=== PATIENT | male | born 1935 | race Two or more races ===

== ENCOUNTER 2018-09-11 13:10 | Outpatient (CLI) | payer MEDICARE, OTHER ==
[~2018-09-11] VITALS: Ht 157.5 cm; Wt 76.2 kg
[2018-09-11 13:00] VITALS: BP 138/62
--- NOTE | 2018-09-11 18:30 | Consultation ---
DATE OF CONSULTATION: 09/11/2018 CHIEF COMPLAINT: Abdominal pain, iron deficiency anemia, constipation, gastroesophageal reflux disease, and bloating. HISTORY: This is an 83-year-old [place] male with numerous medical problems including history of abdominal hernia, history of coronary artery disease status post cardiac surgery, Parkinson disease, iron deficiency, hypertension, and gastroesophageal reflux disease, who has presented to us for evaluation of iron deficiency anemia, abdominal pain, and bloating. PAST MEDICAL HISTORY: 1. Iron deficiency anemia. 2. Parkinson disease. 3. Hypertension. 4. GERD. 5. Abdominal hernia. PAST SURGICAL HISTORY: Coronary artery bypass graft about 10 years ago. MEDICATIONS: Please see medication reconciliation list. ALLERGIES: No known drug allergies. FAMILY HISTORY: No family history of GI malignancies. SOCIAL HISTORY: The patient denies any tobacco, alcohol, or drug abuse. REVIEW OF SYSTEMS: Generally, he complained of abdominal pain, GERD, constipation, and bloating. PHYSICAL EXAMINATION: VITAL SIGNS: Temperature 98, blood pressure is 138/62, pulse 63, and respirations 20. HEENT: Normocephalic and atraumatic. Sclerae anicteric. NECK: Supple. No evidence of lymphadenopathy. CARDIOVASCULAR: Regular rate and rhythm. Plus S1 and S2. No obvious murmur. There is a scar at the from prior surgeries. LUNGS: Decreased breath sounds bilaterally based on the supine exam. ABDOMEN: Soft. Minimal tenderness to palpation in the epigastric area. No rebound. No guarding. No peritoneal sign. EXTREMITIES: No cyanosis. No clubbing. No edema. ASSESSMENT AND PLAN: This is an 83-year-old male with iron-deficiency anemia, abdominal pain, and bloating. The patient was given prescriptions for Align 1 tablet p.o. daily. At this time, the constipation according to him is getting better because he was on pain medication before, so we are going to hold off on getting any treatment for the constipation. But given iron-deficiency anemia, we will plan to do an endoscopy and colonoscopy. The patient was given prescription for prep and instruction. Risks and benefits of the procedure was explained to him and he agreed to it. We will plan for those. Skyler Alexandre M.D. DR: SHEBA JOB#: [id number] CC:
[2018-09-16] MEDS ORDERED: ENTACAPONE200 MG PO (09:03)
[2018-09-16] MEDS ORDERED: METOPROLOL SUCC50 MG ORAL (09:03)
[2018-09-16] MEDS ORDERED: FERROUS GLUCON324 M1 PO (09:03)
[2018-09-16] MEDS ORDERED: ATORVASTATIN CA40 MG ORAL (09:03)
[2018-09-16] MEDS ORDERED: NORCO 10-325 T1 EACH ORAL (09:03)
[2018-09-16] MEDS ORDERED: AMLODIPINE BESYL5 MG ORAL (09:03)
[2018-09-16] MEDS ORDERED: MAGNESIUM250 M2 PO (09:03)
[2018-09-16] MEDS ORDERED: ISOSORBIDE MONO30 M1 PO (09:03)
[2018-09-16] MEDS ORDERED: TRAZODONE HCL50 MG ORAL (09:03)
[2018-09-16] MEDS ORDERED: ZANTAC150 MG ORAL (09:03)
[2018-09-16] MEDS ORDERED: GABAPENTIN300 MG ORAL (09:03)
[2018-09-16] MEDS ORDERED: MYRBETRIQ25 MG PO (09:03)
[2018-09-16] MEDS ORDERED: MELOXICAM7.5 MG PO (09:03)
[2018-09-16] MEDS ORDERED: DOK100 M2 PO (09:03)
[2018-09-16] MEDS ORDERED: CYMBALTA30 MG ORAL (09:03)
[2018-09-16] MEDS ORDERED: TRAMADOL HCL50 MG ORAL (09:03)
[2018-09-16] MEDS ORDERED: AMITIZA24 MCG ORAL (09:03)
[2018-09-16] MEDS ORDERED: SINEMET 25-1001 EAC1 ORAL (09:03)
[2018-09-16] MEDS ORDERED: DONEPEZIL HCL10 M2 ORAL (09:03)
[2018-09-16] MEDS ORDERED: MECLIZINE HCL25 MG ORAL (09:03)
== END 2018-09-11 15:55 | disposition home or self-care (01) ==
LOC: PAN 13:10
DX: R10.9 Unspecified abdominal pain (principal); D50.9 Iron deficiency anemia, unspecified; K59.00 Constipation, unspecified; K21.9 Gastro-esophageal reflux disease without esophagitis; R14.0 Abdominal distension (gaseous); G20 Parkinson's disease; I10 Essential (primary) hypertension; Z95.1 Presence of aortocoronary bypass graft
CPT/HCPCS: 99202